=== PATIENT | male | born 1950 | race Caucasian/White ===

== ENCOUNTER → 2016-08-05 | Outpatient (CLI) | payer MEDICARE, BC | END | disposition home or self-care (01) | LOC: PCVCCLINIC 14:52 | PROVIDERS: ATTEND Internal Medicine | DX: I42.9 Cardiomyopathy, unspecified (principal); I25.10 Atherosclerotic heart disease of native coronary artery without angina pectoris; E11.9 Type 2 diabetes mellitus without complications; I10 Essential (primary) hypertension; E78.5 Hyperlipidemia, unspecified | CPT/HCPCS: 80061; 93005; G0463 ==

== ENCOUNTER → 2017-02-09 | Outpatient (CLI) | payer MEDICARE, BC | END | disposition home or self-care (01) | LOC: PCVCCLINIC 13:00 | PROVIDERS: ATTEND Internal Medicine | DX: I25.10 Atherosclerotic heart disease of native coronary artery without angina pectoris (principal); I11.0 Hypertensive heart disease with heart failure; I50.32 Chronic diastolic (congestive) heart failure; E78.5 Hyperlipidemia, unspecified; E11.9 Type 2 diabetes mellitus without complications; I48.92 Unspecified atrial flutter; M19.90 Unspecified osteoarthritis, unspecified site; E66.9 Obesity, unspecified; Z95.1 Presence of aortocoronary bypass graft; Z96.651 Presence of right artificial knee joint; Z79.82 Long term (current) use of aspirin; Z79.899 Other long term (current) drug therapy | CPT/HCPCS: 80061; 93005; G0463 ==

== ENCOUNTER → 2017-08-07 | Outpatient (CLI) | payer MEDICARE, BC | END | disposition home or self-care (01) | LOC: PCVCCLINIC 09:21 | DX: I25.10 Atherosclerotic heart disease of native coronary artery without angina pectoris (principal); I11.0 Hypertensive heart disease with heart failure; I50.32 Chronic diastolic (congestive) heart failure; E78.5 Hyperlipidemia, unspecified; E11.9 Type 2 diabetes mellitus without complications; R94.31 Abnormal electrocardiogram [ECG] [EKG]; Z79.82 Long term (current) use of aspirin; Z79.899 Other long term (current) drug therapy | CPT/HCPCS: 80061; 93005; G0463 ==

== ENCOUNTER → 2018-02-06 | Outpatient (CLI) | payer MEDICARE, BC | END | disposition home or self-care (01) | LOC: PCVCCLINIC 13:06 | PROVIDERS: ATTEND Internal Medicine | DX: I25.10 Atherosclerotic heart disease of native coronary artery without angina pectoris (principal); I50.32 Chronic diastolic (congestive) heart failure; I10 Essential (primary) hypertension; E11.9 Type 2 diabetes mellitus without complications; E78.5 Hyperlipidemia, unspecified; Z79.82 Long term (current) use of aspirin; Z79.899 Other long term (current) drug therapy | CPT/HCPCS: 80061; 93005; G0463 ==

== ENCOUNTER → 2018-08-09 | Outpatient (CLI) | payer MEDICARE, BC ==
[~2018-08-09] MED LIST: REGADENOSON 0.4 MG/5 ML DISP.SYRIN. IV ONE
--- NOTE | 2018-08-09 16:46 | PCVCIMAG ---
APPROVED REPORT Study performed: 08/09/2018 08:28:10 EXAM: Comprehensive 2D, Doppler, and color-flow Echocardiogram Patient Location: Echo lab Room #: 2Status: routine BSA: 2.58 HR: 80 bpmBP: 110/72 mmHg Rhythm: NSR Other Information Study Quality: Adequate Risk Factors: Cardiac Risk Factors: HTN, DM, Hyperlipidemia Indications CAD S/P CABG. MV ANNULOPLASTY 2D Dimensions IVSd: 11.07 (7-11mm)LVOT Diam: 22.01 (18-24mm) LVDd: 57.34 mm PWd: 12.03 (7-11mm)Ascending Ao: 37.41 (22-36mm) LVDs: 42.93 (25-40mm) Left Atrium: 42.54 (27-40mm) Aortic Root: 30.67 mm LV Single Plane 4CH: 29.81 % LV Single Plane 2CH: 28.65 % Biplane EF: 29.6 % Volumes Left Atrial Volume (Systole) Single Plane 4CH: 90.34 mLSingle Plane 2CH: 59.72 mL Biplane LA Volume: 75.00 mLLA ESV Index: 29.00 mL/m2 Aortic Valve AoV Peak Gurmeet.: 1.40 m/s AO Peak Gr.: 7.80 mmHgLVOT Max P.51 mmHg LVOT Max V: 0.79 m/s JORGE Vmax: 2.16 cm2 Mitral Valve MV Peak Gr.: 18.73 mmHg MV Mean Gr.: 6.01 mmHgE/A Ratio: 4.0 MV Decel. Time: 230.46 ms MV E Max Gurmeet.: 1.52 m/s MV A Gurmeet.: 0.38 m/s MV Max Gurmeet.: 4.33 m/s MV Mean Gurmeet.: 3.50 m/s MV VTI: 403.02 mm MV PHT: 60.60 ms MVA (PHT): 3.63 cm2 IVRT: 62.28 ms Pulmonary Valve PV Peak Gurmeet.: 0.90 m/sPV Peak Gr.: 3.22 mmHg Pulmonary Vein P Vein S: 0.25 m/sP Vein A: 0.14 m/s P Vein D: 0.82 m/sP Vein A Dur.: 103.8 msec P Vein S/D Ratio: 0.30 Tricuspid Valve TR Peak Gurmeet.: 2.87 m/s TR Peak Gr.: 32.87 mmHg TV Vmax: 0.50 m/sPA Pressure: 40.00 mmHg Left Ventricle Left ventricle is at the upper limits of normal. There is global hypokinesis of the left ventricle. Borderline concentric left ventricular hypertrophy. Left ventricular systolic function is mild to moderately decreased. LVEF is 45%. This study is not technically sufficient to allow evaluation of the LV diastolic function. Right Ventricle The right ventricle is normal size. The right ventricular systolic function is normal. Atria Left atrium is dilated. Right atrium is dilated. Aortic Valve The aortic valve is mildly sclerotic. No aortic regurgitation is present. There is no aortic valvular stenosis. Mitral Valve Changes consistent with mitral valve repair; mitral annuloplasty ring. Moderate mitral regurgitation. No evidence of mitral valve stenosis. Tricuspid Valve The tricuspid valve is normal in structure. Mild tricuspid regurgitation with a PA pressure of 40 mmHg Mild pulmonary hypertension.. Pulmonic Valve The pulmonary valve is normal in structure. There is no pulmonic valvular regurgitation. Great Vessels The aortic root is normal in size. Ascending aorta is mildly dilated at 3.7 cm.The aortic arch measures 3.5cm. IVC is normal in size and collapses >50% with inspiration. Pericardium There is no pericardial effusion. There is no pleural effusion. <Conclusion> Left ventricular systolic function is mild to moderately decreased. There is global hypokinesis of the left ventricle. LVEF is 45%. Both atria are dilated. The aortic valve is mildly sclerotic. No aortic regurgitation or stenosis. Changes consistent with mitral valve repair; mitral annuloplasty ring. Moderate mitral regurgitation. Mild tricuspid regurgitation with a pulmonary artery pressure of 40 mmHg There is no pericardial effusion.
--- NOTE | 2018-08-10 12:17 | PCVCIMAG ---
APPROVED REPORT Imaging Protocol: Stress Tc-99m/Rest Tc-99m 2 days Study performed: 08/09/2018 09:46:39 Indication: CAD Patient Location: Out-Patient Stress Tech: JOEL Watters Stress Nurse: Mona Pinon RN, Tran Palencia RN NM Tech:JOEL Watters Ht: 6 ft 0 in Wt: 315 lbs BSA: 2.58 m2 HR: 83 bpm BP: 118/55 mmHg BMI: 42.71 Rhythm: Sinus Rhythm, 1st degree AV block Medical History Medical History: Hyperlipidemia, Obesity , HTN, CHF, Diabetic Noninsulin Medications: ASA, Atorvastatin, Carvedilol, Accupril Allergies: No known drug allergies Cardiac Risk Factors: Age Previous Cardiac Procedures: 2008 CABG Pretest Chest Pain Characteristics: No chest pain Exercise History: Sedentary Meds Held (24 hrs): Carvedilol Resting Data Rest SPECT myocardial perfusion imaging was performed in supine position 45 minutes following the intravenous injection of 34 mCi of Tc-99m Sestamibi. Time of rest injection: 0900 Date: 08/10/2018 Administration Route: IV Administration Site: Right Arm Pharmacologic Stress Pharmacologic stress test was performed by injecting Regadenoson 0.4 mg IV push over 10-15 seconds immediately followed by the intravenous injection of 35.1 mCi of Tc-99m Sestamibi. Time of stress injection: 0945 Date: 08/09/2018 Administration Route: IV Administration Site: Right Arm Gated Stress SPECT was performed 45 minutes after stress injection. The images were gated to evaluate regional wall motion and calculate left ventricular ejection fraction. Stress Test Details Stress Test: Pharmacologic stress testing performed using 0.4 mg of regadenoson per 5 mL given IV over 10 seconds. Reason for pharmacologic stress test: knee issues. HRMax Heart Rate (APMHR): 150 bpm Resting HR: 83 bpmTarget HR (85% APMHR): 127 bpm Max HR Achieved: 99 bpm % of APMHR: 66 Recovery HR: 94 bpm BP Resting BP: 118/55 mmHg Max BP: 96/55 mmHg Recovery BP: 114/54 mmHg ECG Resting ECG: Sinus Rhythm, 1st degree AV block Stress ECG: Sinus Rhythm, 1st degree AV block ST Change: Nondiagnostic resting ST abnormalities Arrhythmia: PVC's Recovery ECG: Sinus Rhythm, 1st degree AV block Clinical Reason for Termination: Completed protocol Stress Symptoms: Chest pain Exercise duration: 0 min 55 sec Symptoms resolved with caffeine. Study Quality Study: Good Study Data Post stress, the left ventricular ejection was 46%.. SSS: 0 SRS: 1 SDS: 0 TID = 0.89. Perfusion There is a medium area of moderately reduced uptake in the basal and mid segment of the inferior wall which is seen on the stress images and improves on the resting images. This area is hypokinetic and is most consistent with myocardial scar. Wall Motion Mildly decreased left ventricular systolic function. Nuclear Conclusion ECG Findings: non-diagnostic Clinical Findings: non-diagnostic Nuclear Findings: positive for mixed infarct and ischemia. Exercise Capacity: not assessed Left Ventricular Function: abnormal This study reveals an incomplete inferior wall NC with mild zoila-infarct ischemia. There is mild segmental LV dysfunction, EF 46%.
== END | disposition home or self-care (01) ==
LOC: PCVCIMAG 08:29
PROVIDERS: ATTEND Internal Medicine
DX: I08.1 Rheumatic disorders of both mitral and tricuspid valves (principal); I25.10 Atherosclerotic heart disease of native coronary artery without angina pectoris
CPT/HCPCS: 78452; 93017; 93306; A9500; J2785

== ENCOUNTER → 2018-10-12 | Outpatient (CLI) | payer MEDICARE, BC | END | disposition home or self-care (01) | LOC: PCVCCLINIC 13:00 | PROVIDERS: ATTEND Internal Medicine | DX: I25.10 Atherosclerotic heart disease of native coronary artery without angina pectoris (principal); I11.0 Hypertensive heart disease with heart failure; I50.42 Chronic combined systolic (congestive) and diastolic (congestive) heart failure; E78.5 Hyperlipidemia, unspecified; E11.9 Type 2 diabetes mellitus without complications; I48.92 Unspecified atrial flutter; Z79.82 Long term (current) use of aspirin | CPT/HCPCS: 36415; 80061; 93005; G0463 ==

== ENCOUNTER → 2019-01-14 | Outpatient (CLI) | payer MEDICARE, BC | END | disposition home or self-care (01) | LOC: PCVCCLINIC 15:13 | PROVIDERS: ATTEND Internal Medicine | DX: I25.10 Atherosclerotic heart disease of native coronary artery without angina pectoris (principal); I11.0 Hypertensive heart disease with heart failure; I50.42 Chronic combined systolic (congestive) and diastolic (congestive) heart failure; E78.5 Hyperlipidemia, unspecified; E11.9 Type 2 diabetes mellitus without complications | CPT/HCPCS: 93005; G0463 ==